=== PATIENT | male | born 1995 | race Caucasian/White ===

== ENCOUNTER 2022-11-18 20:20 | Emergency (ER) | payer OTHER ==
[~2022-11-18] VITALS: Ht 185.4 cm; Wt 116.6 kg
[2022-11-18 21:44] VITALS: BP_SYST 135; PULSE 74; RESP 18; TEMP 98; O2SAT 98
--- NOTE | 2022-11-18 21:51 | NUR ---
Patient triaged and placed in waiting room. VSS and patient appears in no acute distress at this time. Accompanied by self, awaiting available bed, and MD notified of need for MSE.
--- NOTE | 2022-11-18 22:10 | NUR ---
Patient to ER bed 01 to gown for evaluation. Side rails up. Report given to JENNY BUSTAMANTE
[2022-11-18 23:47] LABS: BASOPHILS % (AUTO) 0.3 % (0.0-2.0); EOSINOPHILS # (AUTO) 0.2 K/uL (0.0-0.4); EOSINOPHILS % (AUTO) 2.4 % (0.0-4.0); HEMATOCRIT 41.5 % (36-54); HEMOGLOBIN 13.8 g/dL (14.0-18.0); LYMPHOCYTES # (AUTO) 1.8 K/uL (1.0-5.5); MEAN CORPUSCULAR HEMOGLOBIN 30 pg (27-31); MEAN CORPUSCULAR HGB CONC 33 % (32-36); MEAN CORPUSCULAR VOLUME 90 fL (79.0-98.0); MONOCYTES # (AUTO) 0.5 K/uL (0.0-1.0); MONOCYTES % (AUTO) 6.8 % (1.7-9.3); NEUTROPHILS # (AUTO) 4.2 K/uL (1.8-7.7); NEUTROPHILS % (AUTO) 63.5 % (40.0-70.0); PLATELET COUNT (AUTO) 211 K/uL (130-430); RED BLOOD CELL COUNT(AUTO) 4.63 MIL/uL (4.2-6.2); RED CELL DISTRIBUTION WIDTH 13.6 % (9.0-15.0); WHITE BLOOD COUNT (AUTO) 6.7 K/uL (4.8-10.8)
[2022-11-19] LABS: BARBITURATE, URINE NEGATIVE (NEG <=200); BENZODIAZEPINE, URINE NEGATIVE (NEG <=150); CANNABINOID, URINE NEGATIVE (NEG <=50); COCAINE, URINE NEGATIVE (NEG <=150); METHAMPHETAMINES SCREEN,URINE NEGATIVE (NEG <=500); OPIATE, URINE NEGATIVE (NEG <=100); PHENCYCLIDINE SCREEN,URINE NEGATIVE (NEG <=25); UR TRICYCLIC ANTIDEPRESSANTS NEGATIVE (NEG <=300); URINE AMPHETAMINE NEGATIVE (NEG <=500); URINE METHADONE NEGATIVE (NEG <=200); URINE OXYCODONE SCREEN NEGATIVE (NEG <=100); URINE PROPOXYPHENE SCREEN NEGATIVE (NEG <=300)
--- NOTE | 2022-11-19 00:01 | NUR ---
PT RESTING WITH NO ACUTE DISTRESS. AWAITING URINE SAMPLE RESULTS.
[2022-11-19 00:03] LABS: CALCIUM 8.8 mg/dL (8.4-11.0); CREATININE 1.01 mg/dL (0.55-1.30)
[2022-11-19 00:07] LABS: TOTAL BILIRUBIN 0.5 mg/dL (0.0-1.0)
[2022-11-19 00:18] VITALS: O2SAT 98
[2022-11-19 00:21] VITALS: BP_SYST 122; PULSE 74; RESP 18; TEMP 98.4
--- NOTE | 2022-11-19 00:23 | NUR ---
Patient given written and verbal discharge instructions and verbalizes understanding. ER MD PARRISH discussed with patient the results and treatment provided. Patient in stable condition. ID arm band removed. IV catheter removed intact and dressing applied, no active bleeding. Rx of NONE given. Patient educated on pain management and to follow up with PMD. Pain Scale 0 . Opportunity for questions provided and answered. Medication side effect fact sheet provided.
== END 2022-11-19 00:22 | disposition home or self-care (01) ==
LOC: SED 20:20
DX: R42 Dizziness and giddiness (principal); R20.2 Paresthesia of skin; R11.10 Vomiting, unspecified; Z79.899 Other long term (current) drug therapy
CPT/HCPCS: 36415; 70450-TC; 76376; 80053; 80307; 85025; 93005; 99284

== ENCOUNTER 2022-11-24 04:53 | Emergency (ER) | payer OTHER ==
[~2022-11-24] VITALS: Ht 185.4 cm; Wt 116.6 kg
[2022-11-24 04:59] VITALS: BP_SYST 150; PULSE 80; RESP 20; TEMP 98.3; O2SAT 100
[2022-11-24] MEDS ORDERED: NACL 0.9% 1,000 ML IV ONE (05:15)
[2022-11-24] MEDS ORDERED: ONDANSETRON HCL 4 MG/2 ML VIAL IVP ONE (05:15)
[2022-11-24] MEDS ORDERED: MECLIZINE HCL 25 MG TABLET (ANITVERT) PO ONE (05:45)
[2022-11-24] MEDS ORDERED: LORazepam 1 MG TABLET PO ONE (05:45)
[2022-11-24 06:45] LABS: BASOPHILS % (AUTO) 0.5 % (0.0-2.0); HEMATOCRIT 40.1 % (36-54); HEMOGLOBIN 13.3 g/dL (14.0-18.0); LYMPHOCYTES % (AUTO) 20.6 % (20.5-51.5); MEAN CORPUSCULAR HEMOGLOBIN 30 pg (27-31); MEAN CORPUSCULAR HGB CONC 33 % (32-36); MEAN CORPUSCULAR VOLUME 89 fL (79.0-98.0); MONOCYTES # (AUTO) 0.4 K/uL (0.0-1.0); MONOCYTES % (AUTO) 7.7 % (1.7-9.3); NEUTROPHILS # (AUTO) 3.5 K/uL (1.8-7.7); NEUTROPHILS % (AUTO) 70.2 % (40.0-70.0); PLATELET COUNT (AUTO) 198 K/uL (130-430); RED BLOOD CELL COUNT(AUTO) 4.51 MIL/uL (4.2-6.2); WHITE BLOOD COUNT (AUTO) 4.9 K/uL (4.8-10.8)
[2022-11-24 06:58] LABS: ANION GAP 9 (5-15); CALCIUM 8.1 mg/dL (8.4-11.0); CHLORIDE 106 mmol/L (98-107); CREATININE 0.97 mg/dL (0.55-1.30); GFR AFRICAN AMERICAN 119 mL/min (>90); GLUCOSE 94 mg/dL (74-106); UREA NITROGEN, BLOOD 11 mg/dL (8-21)
[2022-11-24 07:05] LABS: ALANINE AMINOTRANSFERASE 19 U/L (12-78); ALBUMIN 3.6 g/dL (3.4-4.8); ASPARTATE AMINOTRANSFERASE 9 U/L (10-37); LIPASE 50 U/L (73-393); TOTAL BILIRUBIN 0.9 mg/dL (0.0-1.0)
[2022-11-24] MEDS ORDERED: MECL-261 PO ×2 (07:35→07:46)
[2022-11-24 07:54] VITALS: BP_SYST 150; PULSE 80; RESP 20; TEMP 98.3; O2SAT 100
== END 2022-11-24 07:54 | disposition home or self-care (01) ==
LOC: SED 04:53
DX: R42 Dizziness and giddiness (principal); R11.2 Nausea with vomiting, unspecified; Z79.899 Other long term (current) drug therapy
CPT/HCPCS: 99285; 96374; 96361; 80053; 83690; 85025; 84484; 36415; 93005; 74021; J8597; J2405; J7030